=== PATIENT | female | born 2000 | race Caucasian/White ===

== ENCOUNTER 2021-10-21 23:16 | Emergency (ER) | payer MEDICAID ==
[~2021-10-21] VITALS: Ht 160 cm; Wt 54.5 kg
[2021-10-22] MEDS ORDERED: CEPH500C3 PO (00:43)
[2021-10-22 01:07] VITALS: BP 119/70
== END 2021-10-22 01:11 | disposition home or self-care (01) ==
LOC: EMS 23:19
DX: H00.015 Hordeolum externum left lower eyelid (principal); H00.035 Abscess of left lower eyelid
CPT/HCPCS: 99282; Z7502

== ENCOUNTER 2022-04-24 11:58 | Emergency (ER) | payer MEDICAID ==
[~2022-04-24] VITALS: Ht 160 cm; Wt 57.3 kg
[~2022-04-24 11:58] MED LIST: CEPH-558 PO
[2022-04-24 13:02] LABS: EOSINOPHILS % (AUTO) 3.1 % (1.0-6.0); HEMATOCRIT 42.7 % (36-46); HEMOGLOBIN 13.8 g/dL (12.0-16.0); LYMPHOCYTES # (AUTO) 1.7 K/uL (1.0-4.8); LYMPHOCYTES % (AUTO) 29.9 % (22.0-44.0); MEAN CORPUSCULAR HEMOGLOBIN 26.6 pg (26.0-34.0); MEAN CORPUSCULAR HGB CONC 32.3 G/dL (31.0-37.0); MEAN CORPUSCULAR VOLUME 82 fL (80-100); MONOCYTES # (AUTO) 0.5 K/uL (0.1-1.0); MONOCYTES % (AUTO) 8.7 % (2.0-9.0); NEUTROPHILS # (AUTO) 3.3 K/uL (1.8-7.7); NEUTROPHILS % (AUTO) 57.3 % (40.0-70.0); PLATELET COUNT (AUTO) 255 K/uL (150-450); RED BLOOD CELL COUNT(AUTO) 5.19 MIL/uL (4.00-5.20); RED CELL DISTRIBUTION WIDTH 14.6 % (11.5-14.5)
[2022-04-24 13:14] LABS: ANION GAP 9 mmol/L (8-16); CALCIUM, TOTAL 8.7 mg/dL (8.8-10.5); CARBON DIOXIDE 26 mmol/L (22-29); CHLORIDE 103 mmol/L (98-107); CREATININE 0.61 mg/dL (0.60-1.30); GLUCOSE,RANDOM 87 mg/dL (70-110); POTASSIUM 3.9 mmol/L (3.5-5.1); SODIUM SERUM 138 mmol/L (136-145); UREA NITROGEN, BLOOD 5 mg/dL (7-18)
[2022-04-24 13:15] LABS: GLOMERULAR FILTR. RATE CALC > 60 mL/min (>60)
[2022-04-24] MEDS ORDERED: IOHEXOL 350 MG/ML 100 ML VIAL ONE (13:20)
[2022-04-24] MEDS ORDERED: SODIUM CHLORIDE 0.9% 100 ML ONE (13:20)
[2022-04-24 13:29] LABS: HCG,QUANTITATIVE < 1 mIU/mL (0-6)
[2022-04-24 13:39] LABS: LACTIC ACID 0.8 mmol/L (0.4-2.0)
[2022-04-24] MEDS: KETOROLAC TROMETHAMINE 30 MG/ML VIAL IVP ONE ×3 (14:07→15:33)
[2022-04-24 14:40] LABS: COVID AG,FIA SOURCE NASOPHARYNGEAL
[2022-04-24] MEDS ORDERED: DEXAMETHASONE SOD PHOS 4 MG/ML VIAL IVP ONE (15:30)
[2022-04-24 16:27] VITALS: BP 127/73
== END 2022-04-24 16:30 | disposition home or self-care (01) ==
LOC: EMS 12:09
DX: J02.9 Acute pharyngitis, unspecified (principal); Z20.822 Contact with and (suspected) exposure to COVID-19
CPT/HCPCS: 99285; 96374; 70491; 96375; 87426; 80048; 83605; 84702; 85025; 86308; 87430; 36415; J1100; J1885; Q9967; J7050